=== PATIENT | female | born 1945 | race African-American/Black ===

== ENCOUNTER 2018-04-04 11:55 | Inpatient (IN) | payer MEDICARE, MEDICAID, OTHER ==
[~2018-04-04] VITALS: Ht 160 cm; Wt 74.4 kg
[~2018-04-04 11:55] MED LIST: HYDR200T35 PO; LEFL20TA17 PO; PANT40VI6 PO; PRED5TAB PO; TRIA1TAB94 PO
[2018-04-04] MEDS ORDERED: ASPIRIN 81MG TABLET PO ONE (12:15)
[2018-04-04 12:55] LABS: BASOPHILS % 0.7 % (0.0-2.0); EOSINOPHILS % 0.2 % (0.0-5.0); HEMATOCRIT. 44.5 % (36.0-48.0); HEMOGLOBIN. 14.5 g/dL (12.0-16.0); LYMPHOCYTES % 29.9 % (20.0-50.0); MEAN CORPUSCULAR HEMOGLOBIN 27.9 pg (28.0-32.0); MEAN CORPUSCULAR VOLUME 85.5 fL (81.0-99.0); MEAN PLATELET VOLUME 10.2 fl (7.4-10.4); MONOCYTES % 8.5 % (2.0-8.0); NEUTROPHILS % 60.7 % (40.0-76.0); PLATELET 279 x1000/uL (130-400); RED BLOOD CELL COUNT 5.21 mill/uL (4.2-5.4); RED CELL DISTRIBUTION WIDTH 15.2 % (11.6-14.6)
[2018-04-04 13:02] LABS: CHLORIDE 97 mEq/L (98-107)
[2018-04-04] MEDS ORDERED: ONDANSETRON HCL 4MG/2ML INJ IV STA (14:03)
[2018-04-04] MEDS ORDERED: FAMOTIDINE 20MG/2ML VIAL IV STA (14:03)
[2018-04-04] MEDS ORDERED: MAGNESIUM/ALUMINUM HYDROXIDE/SIMETHICONE 30ML UDC PO STA (14:03)
[2018-04-04] MEDS ORDERED: SODIUM CHLORIDE 0.9% 500 ML IV ONE (14:15)
[2018-04-04] MEDS ORDERED: ONDANSETRON HCL 4MG/2ML INJ IV PRN (15:45)
[2018-04-04] MEDS ORDERED: ACETAMINOPHEN 325MG TABLET PO PRN (15:45)
[2018-04-04] MEDS ORDERED: CLONIDINE 0.1MG TABLET PO PRN (15:45)
[2018-04-04] MEDS ORDERED: LORAZEPAM 0.5MG TABLET PO PRN (15:45)
[2018-04-04] MEDS ORDERED: MAGNESIUM/ALUMINUM HYDROXIDE/SIMETHICONE 30ML UDC PO PRN (15:45)
[2018-04-04 16:03] LABS: AMYLASE 105 IU/L (25-115)
[2018-04-04] MEDS ORDERED: HYDROMORPHONE HCL/PF 2MG/ML CPJ IV PRN (18:00)
[2018-04-04] MEDS ORDERED: HYDRALAZINE 20MG/ML VIAL IV PRN (18:15)
[2018-04-04] MEDS ORDERED: POTASSIUM CHLORIDE 20MEQ TABLET SR PO NR (20:15)
[2018-04-04 20:40] VITALS: BP 133/78
[2018-04-04 20:45] VITALS: BP 133/78
[2018-04-04] MEDS ORDERED: ENOXAPARIN 40MG/0.4ML SYR SUBCUT SCH (21:00)
[2018-04-04] MEDS: ATENOLOL 50 MG TABLET PO SCH (21:58)
[2018-04-04] MEDS: DEXT 5%/0.45% NACL KCL 40MEQ/L 1,000 ML IV SCH (21:59)
[2018-04-04] MEDS: AMLODIPINE 5MG TABLET PO SCH (21:59)
[2018-04-05 00:05] VITALS: BP 129/69
[2018-04-05 00:55] LABS: CREATINE KINASE MB FRACTION 1.3 ng/mL (0.5-3.6)
[2018-04-05 04:00] VITALS: BP 123/69
[2018-04-05] MEDS: DEXT 5%/0.45% NACL KCL 40MEQ/L 1,000 ML IV SCH ×2 (06:23→21:44)
[2018-04-05 06:48] LABS: BASOPHILS % 0.8 % (0.0-2.0); EOSINOPHILS % 1.3 % (0.0-5.0); HEMOGLOBIN. 13.2 g/dL (12.0-16.0); LYMPHOCYTES % 40.7 % (20.0-50.0); MEAN CORPUSCULAR HEMOGLOBIN 27.9 pg (28.0-32.0); MEAN CORPUSCULAR VOLUME 86.5 fL (81.0-99.0); MEAN PLATELET VOLUME 9.2 fl (7.4-10.4); MONOCYTES % 10.3 % (2.0-8.0); NEUTROPHILS % 46.9 % (40.0-76.0); PLATELET 220 x1000/uL (130-400); RED BLOOD CELL COUNT 4.74 mill/uL (4.2-5.4); RED CELL DISTRIBUTION WIDTH 14.8 % (11.6-14.6)
[2018-04-05 07:07] LABS: CHLORIDE 105 mEq/L (98-107)
[2018-04-05 07:23] LABS: CREATINE KINASE MB FRACTION 1.1 ng/mL (0.5-3.6)
[2018-04-05 08:00] VITALS: BP 129/67
[2018-04-05] MEDS: ATENOLOL 50 MG TABLET PO SCH (09:00)
[2018-04-05] MEDS: FAMOTIDINE 20MG/2ML VIAL IV SCH (09:27)
[2018-04-05] MEDS: AMLODIPINE 5MG TABLET PO SCH ×2 (09:27→21:44)
[2018-04-05] MEDS: POTASSIUM CHLORIDE 20MEQ TABLET SR PO SCH (09:27)
[2018-04-05 12:00] VITALS: BP 120/56
[2018-04-05 20:00] VITALS: BP 118/61
[2018-04-05] MEDS ORDERED: ENOXAPARIN 30MG/0.3ML SYR SUBCUT SCH (21:00)
[2018-04-06 00:27] VITALS: BP 108/53
[2018-04-06 04:00] VITALS: BP 111/62
[2018-04-06] MEDS: DEXT 5%/0.45% NACL KCL 40MEQ/L 1,000 ML IV SCH (05:43)
[2018-04-06 06:50] LABS: BASOPHILS % 0.6 % (0.0-2.0); EOSINOPHILS % 2.3 % (0.0-5.0); HEMATOCRIT. 38.4 % (36.0-48.0); HEMOGLOBIN. 12.3 g/dL (12.0-16.0); LYMPHOCYTES % 42.6 % (20.0-50.0); MEAN CORPUSCULAR HEMOGLOBIN 27.6 pg (28.0-32.0); MEAN CORPUSCULAR VOLUME 86.5 fL (81.0-99.0); MEAN PLATELET VOLUME 10.5 fl (7.4-10.4); MONOCYTES % 12.6 % (2.0-8.0); NEUTROPHILS % 41.9 % (40.0-76.0); PLATELET 228 x1000/uL (130-400); RED BLOOD CELL COUNT 4.44 mill/uL (4.2-5.4); RED CELL DISTRIBUTION WIDTH 14.8 % (11.6-14.6)
[2018-04-06 08:00] VITALS: BP 111/46
[2018-04-06] MEDS: ATENOLOL 50 MG TABLET PO SCH (09:00)
[2018-04-06] MEDS: POTASSIUM CHLORIDE 20MEQ TABLET SR PO SCH (09:00)
[2018-04-06] MEDS ORDERED: REGADENOSON 0.4 MG/5 ML IV NR (09:15)
[2018-04-06] MEDS: SODIUM CHL 0.45% + KCL 20MEQ/L 1,000 ML IV SCH ×2 (10:00→17:36)
[2018-04-06] MEDS: FAMOTIDINE 20MG/2ML VIAL IV SCH (10:15)
[2018-04-06] MEDS: AMLODIPINE 5MG TABLET PO SCH ×2 (10:17→20:33)
[2018-04-06 12:00] VITALS: BP 114/54
[2018-04-06] MEDS ORDERED: REGADENOSON 0.4 MG/5 ML IV ONE (13:07)
[2018-04-06 16:00] VITALS: BP 138/66
[2018-04-06 20:00] VITALS: BP 128/62
[2018-04-06] MEDS: ENOXAPARIN 40MG/0.4ML SYR SUBCUT SCH (20:32)
[2018-04-07 00:09] VITALS: BP 120/58
[2018-04-07] MEDS: SODIUM CHL 0.45% + KCL 20MEQ/L 1,000 ML IV SCH ×2 (02:00→09:31)
[2018-04-07 04:00] VITALS: BP 134/56
[2018-04-07 08:00] VITALS: BP 139/74
[2018-04-07] MEDS: ATENOLOL 50 MG TABLET PO SCH (09:30)
[2018-04-07] MEDS: AMLODIPINE 5MG TABLET PO SCH (09:31)
[2018-04-07] MEDS: ENOXAPARIN 40MG/0.4ML SYR SUBCUT SCH (09:31)
[2018-04-07 11:20] VITALS: BP 139/74
== END 2018-04-07 11:55 | disposition home or self-care (01) | DRG 392 ==
LOC: ER 13:04 → 7WST 13:13 → ENRESERV 19:31
PROVIDERS: ADMIT Internal Medicine Geriatric Medicine; ATTEND Internal Medicine Geriatric Medicine
DX: K52.9 Noninfective gastroenteritis and colitis, unspecified (principal); N17.9 Acute kidney failure, unspecified; R07.89 Other chest pain; I10 Essential (primary) hypertension; D18.09 Hemangioma of other sites; E86.0 Dehydration; E87.6 Hypokalemia; E78.00 Pure hypercholesterolemia, unspecified; I25.10 Atherosclerotic heart disease of native coronary artery without angina pectoris; K21.9 Gastro-esophageal reflux disease without esophagitis; M19.90 Unspecified osteoarthritis, unspecified site; D18.03 Hemangioma of intra-abdominal structures; M06.9 Rheumatoid arthritis, unspecified; Z87.11 Personal history of peptic ulcer disease; Z90.710 Acquired absence of both cervix and uterus; Z90.721 Acquired absence of ovaries, unilateral
CPT/HCPCS: 36415; 71045; 76700; 78452; 80048; 82150; 82553; 83735; 84484; 93005; 93017; 93306; 93970; 96374; 96375; 99285; A9500; J0360; J1650; J2405; J2785; J3480; J3490; J7040